=== PATIENT | male | born 1980 | race Caucasian/White ===

== ENCOUNTER 2022-04-21 14:39 | Outpatient (CLI) | payer BC, SELFPAY ==
[2022-04-21 21:37] LABS: Uric Acid* 8.5 mg/dL (2.2-8.4)
== END 2022-04-21 14:40 | disposition home or self-care (01) ==
LOC: KYNREF 14:46
PROVIDERS: PCP Nurse Practitioner Family; Visit Provider Nurse Practitioner Family
DX: M10.9 Gout, unspecified (principal)
CPT/HCPCS: 36415; 84550

== ENCOUNTER 2022-04-28 18:28 | Outpatient (CLI) | payer BC, SELFPAY ==
[2022-04-28 13:37] LABS: Albumin* 4.4 g/dL (3.3-5.0); Chloride* 100 mmol/L (96-114); Sodium* 136 mmol/L (135-149)
[2022-04-28 13:38] LABS: Potassium* 4.5 mmol/L (3.6-5.1)
[2022-04-28 13:39] LABS: Creatinine* 0.9 mg/dL (0.5-1.5); Estimated Glomerular Filt Rate 111 ml/min
[2022-04-28 13:40] LABS: Alanine Aminotransferase* 20 U/L (4-50); Alkaline Phosphatase* 70 U/L (40-150); Aspartate Amino Transferase* 22 U/L (12-35); Bilirubin Total* 0.4 mg/dL (0.1-1.5); Blood Urea Nitrogen* 13 mg/dL (5-24); Carbon Dioxide* 27 mmol/L (20-32); Glucose* 101 mg/dL (60-115); Total Protein* 6.5 g/dL (6.0-8.3)
[2022-04-28 13:41] LABS: Calcium* 9.2 mg/dL (8.4-10.6)
[2022-04-28 13:48] LABS: Basophils Absolute Auto 0.04 K/uL (0.00-0.30); Basophils Percent Auto 0.4 % (0.0-3.0); Eosinophils Absolute Auto 0.14 K/uL (0.00-0.50); Eosinophils Percent Auto 1.5 % (0.0-7.0); Hematocrit 47.1 % (37.0-53.0); Hemoglobin* 16.7 gm/dL (13.5-17.5); Immature Granulocytes Abs Auto 0.01 K/uL (0.00-0.30); Lymphocytes Percent Auto 41.9 % (20-44); Mean Corpuscular HGB Conc 36 gm/dL (32-36); Mean Corpuscular Hemoglobin 31 pg (26-34); Mean Corpuscular Volume 87 fL (80-100); Monocytes Percent Auto 6.3 % (0.0-11.0); Neutrophils Absolute Auto 4.52 K/uL (1.7-7.0); Neutrophils Percent Auto 49.8 % (42.0-72.0); Platelet Count* 221 K/uL (140-440); RDW Coefficient of Variation % 11.8 % (11.5-15.5); White Blood Count* 9.08 K/uL (4.50-11.00)
[2022-04-28 13:53] LABS: Slide Review Reflex No
[2022-04-28 14:15] LABS: Vitamin D 25 Hydroxy* 36 ng/mL (30-80)
--- OUTSIDE RECORDS SUMMARY | 2022-05-20 14:27 | XMS_ITS | Encounter Summary ---
:1980 Author Organization [facility] Address [address] [place] [address] Care Team Providers Name Role Phone Unavailable Primary Care Provider Unavailable Reason for Visit Reason Onset Date Comments Outpatient COVID-19 Testing Outpatient COVID-19 Testing 07/10/2020 Encounter Details Date Type Department Care Team Description 07/10/2020 External Outreach Department of [facility] Infect ion Upper Internal Medicine in J, D.O. Respiratory ([place], [place] [address] Dx) [address] [place] [phone] Social History Tobacco Use Types Packs/Day Years Used Date Smoking Tobacco: Every Day Sex Assigned at Date Recorded Not on file documented as of this encounter Progress Notes Charlee Traylor R.N. - 07/10/2020 12:15 PM CDT Encounter created for the drive-through COVID-19 testing. documented in this encounter Plan of Treatment Not on filedocumented as of this encounter Procedures Procedure Name Priority Date/Time Associated Diagnosis Comme nts SARS CORONAVIRUS-2 Routine 07/10/2020 12:16 PM Infection Upper Results for this RNA, V CDT Respiratory procedure are i n the results section. documented in this encounter Results SARS Coronavirus-2 RNA, V Symptomatic (07/10/2020 12:16 PM CDT) [facility] Method Time Signature SARS-CoV-2 Swab, 07/11/2020 [facility] Specimen Nasopharynx 8:40 PM CDT Source SARS CoV-2 Undetected Undetected 07/11/2020 MKTO RNA, TMA 8:40 PM CDT Comment: SARS-CoV-2 RNA absent. This result does not rule out COVID-19 in the patient, as the sensitivity of the test depends o n the timing of the specimen collection and the quality of the specim en. Result should be correlated with patient's history and clinical presentat ion. ----ADDITIONAL INFORMATION---- This test is performed using the Aptima SARS-CoV-2 assay ([employer] which has received Emergency Use Authori zation (EUA) by the U.S. Food and Drug Administration. Fact sheets for this Emergency Use Autho rization (EUA) assay can be found at the following links: For Healthcare Providers: https://www.fd a.gov/media/315714/download For Patients: https://www.fda.gov/media/ 253448/download Specimen Anatomical Collection Method Collection Time Receive d Time (Source) Location / / Volume Laterality Varies 07/10/2020 12:16 07/10/2020 7:55 (Nasopharynx) PM CDT PM CDT [facility] D.O. LAB MICROBIOLOGY - GENERAL O RDERABLES Performing Organization Address City/State/[facility] Code Phon e Number [facility]- [address] [place] [id number] [place] [address] [address] documented in this encounter Visit Diagnoses Diagnosis Infection Upper Respiratory - Primary documented in this encounter Additional Health Concerns Infection Onset Date Last Indicated Resolved Time COVID19 Pending 07/10/2020 07/10/2020 07/10/2020 3:43 PM CDT COVID19 Pending 07/10/2020 07/10/2020 07/11/2020 8:40 PM CDT documented as of this encounter
--- OUTSIDE RECORDS SUMMARY | 2022-05-20 14:27 | XMS_ITS | Encounter Summary ---
:1980 Author Organization [facility] Address [address] [place] [address] Care Team Providers Name Role Phone Unavailable Primary Care Provider Unavailable Reason for Visit Reason Comments Depression COVID-19 Negative Encounter Details Date Type Department Care Team Description 07/12/2020 Clinical Communication Department of [facility] Internal Medicine [facility] Sharp D.O. (COVID-19 Negative) in [address] [facility] [address] [place] [phone] Social History Tobacco Use Types Packs/Day Years Used Date Smoking Tobacco: Every Day Sex Assigned at Date Recorded Not on file documented as of this encounter Miscellaneous Notes Telephone Encounter - Maggie Benavidez - 07/12/2020 3:24 PM CDT [employer] number is: Gave Negative COVID-19 result to patient via phone. documented in this encounter Plan of Treatment Not on filedocumented as of this encounter Visit Diagnoses Not on filedocumented in this encounter
--- OUTSIDE RECORDS SUMMARY | 2022-05-20 14:27 | XMS_ITS | Encounter Summary ---
:1980 Author Organization [facility] Address [address] [place] [address] Care Team Providers Name Role Phone Unavailable Primary Care Provider Unavailable Encounter Details Date Type Department Care Team Description 02/06/2021 Orders Only [facility] Sa lucy Griffin M.D. [address] [place] [address] [phone] (Wo rk) Social History Tobacco Use Types Packs/Day Years Used Date Smoking Tobacco: Never Assessed Sex Assigned at Date Recorded Not on file documented as of this encounter Plan of Treatment Not on filedocumented as of this encounter Visit Diagnoses Not on filedocumented in this encounter
--- OUTSIDE RECORDS SUMMARY | 2022-05-20 14:27 | XMS_ITS | Encounter Summary ---
:1980 Author Organization [facility] Address [address] [place] [address] Care Team Providers Name Role Phone Unavailable Primary Care Provider Unavailable Reason for Visit Reason Onset Date Comments Outpatient COVID-19 Testing 07/10/2020 Encounter Details Date Type Department Care Team Description 07/10/2020 External Outreach Department of [facility] Infect ion Upper Internal Medicine in J, D.O. Respiratory (Primary [place], [place] [address] Dx) [address] [place] [phone] Social History Tobacco Use Types Packs/Day Years Used Date Smoking Tobacco: Never Assessed Sex Assigned at Date Recorded Not on file documented as of this encounter Progress Notes Amira Maguire, R.M.A. - 07/10/2020 8:22 AM CDT Encounter created for the drive-through COVID-19 testing. documented in this encounter Plan of Treatment Not on filedocumented as of this encounter Visit Diagnoses Diagnosis Infection Upper Respiratory - Primary documented in this encounter Additional Health Concerns Infection Onset Date Last Indicated Resolved Time COVID19 Pending 07/10/2020 07/10/2020 07/10/2020 3:43 PM CDT documented as of this encounter
--- OUTSIDE RECORDS SUMMARY | 2022-05-20 14:27 | XMS_ITS | Clinical Summary ---
:1980 Author Organization [facility] Address [address] [place] [address] Care Team Providers Name Role Phone Unavailable Primary Care Provider Unavailable Source Comments Patient records contain information from all sites at [facility]. For routine questions regarding patient records, call [phone] during business hours, M-F 8:00 AM - 5:00 PM Central Time. Record requests for emergency care only can be directed to [phone] at any time.[facility] Social History Tobacco Use Types Packs/Day Years Used Date Smoking Tobacco: Every Day Sex Assigned at Date Recorded Not on file Last Filed Vital Signs Vital Sign Reading Time Taken Comments Blood Pressure 116/78 03/10/2013 1:14 PM CDT Pulse 68 03/10/2013 1:14 PM CDT Temperature - - Respiratory Rate - - Oxygen Saturation - - Inhaled Oxygen Concentration - - Weight 117 kg (257 lb 11.5 oz) 03/10/2013 1:14 PM CDT Height 182 cm (5' 11.65) 01/18/2013 10:56 AM CDT Body Mass Index 35.29 01/18/2013 10:56 AM CDT Plan of Treatment Health Maintenance Due Date Last Done Comments Fasting Lipid Panel 1980 HIV Screening 1980 Hepatitis B Vaccines (1 of 3 - 3-dose 1980 series) Hepatitis C Screening 1980 COVID-19 Vaccine (#1) 01/23/1982 Pneumococcal vaccine (0-64 years) (1 1987 - PCV) DTaP,Tdap,and Td Vaccines (3 - Tdap) 11/16/2003 11/15/2003, 04/12/1998, 01/23/1982 Depression Screening (Annual PHQ-2) 10/12/2021 Influenza Vaccine (#1) 2022 Insurance Payer Benefit Plan Subscriber ID Effective Phone Address Typ e / Group Dates ALESHA EDUARDO [id number] 2020-Prese ATTN: Julio C katharina O [employer] [address] [address] [place] [address] ALESHA EDUARDO [id number] 2020-Prese ATTN: Julio C katharina O [employer] [place] [address] [address] [place] [address]
--- OUTSIDE RECORDS SUMMARY | 2022-05-20 14:27 | XMS_ITS | Encounter Summary ---
:1980 Author Organization [facility] Address [address] [place] [address] Care Team Providers Name Role Phone Unavailable Primary Care Provider Unavailable Encounter Details Date Type Department Care Team Description 02/06/2021 Orders Only [facility] Sa lucy Griffin M.D. [address] [place] [address] [phone] (Wo rk) Social History Tobacco Use Types Packs/Day Years Used Date Smoking Tobacco: Every Day Sex Assigned at Date Recorded Not on file documented as of this encounter Plan of Treatment Not on filedocumented as of this encounter Visit Diagnoses Not on filedocumented in this encounter
--- OUTSIDE RECORDS SUMMARY | 2022-05-20 14:27 | XMS_ITS | Encounter Summary ---
:[address] [facility] Address [address] [place] [address] Care Team Providers Name Role Phone Unavailable Primary Care Provider Unavailable Encounter Details Date Type Department Care Team Description 06/03/2001 - Hospital Encounter HX RST GENEROSE 2 EAST 06/07/2001 Social History Tobacco Use Types Packs/Day Years Used Date Smoking Tobacco: Never Assessed Sex Assigned at Date Recorded Not on file documented as of this encounter Plan of Treatment Not on filedocumented as of this encounter Visit Diagnoses Not on filedocumented in this encounter
== END 2022-04-28 18:29 | disposition home or self-care (01) ==
PROVIDERS: PCP Nurse Practitioner Family; Visit Provider Nurse Practitioner Family
DX: Z79.899 Other long term (current) drug therapy (principal); M10.9 Gout, unspecified; F41.9 Anxiety disorder, unspecified
CPT/HCPCS: 36415; 80053; 82306; 84443; 85025